=== PATIENT | female | born 1990 ===

== ENCOUNTER → 2017-07-11 | Outpatient (CLI) | payer OTHER ==
--- NOTE | 2017-07-12 07:47 | MAMMOGRAPHY REPORT ---
ULTRASOUND OF BOTH BREASTS: 07/11/2017 CLINICAL HISTORY: The patient reports thickening and associated intermittent tenderness in the right upper outer quadrant for approximately 6 months. She reports a history of PCOS and was told by her p ellenviluisito she will be getting a screening bilateral ultrasound. COMPARISON: No prior exams were available for comparison. TECHNIQUE: Real-time ultrasound of both breasts was performed. FINDINGS: Real-time, high-resolution ultrasound was performed of bilateral breasts including all 4 q uadrants and subareolar regions. Ultrasound was performed of the area of thickening and intermittent pain pointed out by the patient in the right upper outer quadrant. Sonographically normal tissue is seen in the area of intermittent pain and thickening pointed out by the patient. The remainder of b oth breasts also demonstrate no suspicious masses or other suspicious sonographic abnormalities. In the right 7:00 subareolar breast, there is a circumscribed oval anechoic 3 x 2 mm mass, consistent wi th a benign simple cyst. 2 adjacent anechoic circumscribed masses are also seen in the right 3:00 pe riareolar breast, one measuring 2 x 3 mm and the other measuring 2 mm; the masses are benign and comp atible with small cysts. IMPRESSION: ACR BI-RADS CATEGORY 2: BENIGN No suspicious sonographic abnormality at the site of thickening and intermittent pain in the right up per outer quadrant. There is no sonographic evidence of malignancy in either breast. Recommend clin ical follow-up for right breast thickening and pain. The patient was verbally notified of the results. Mariam Goodrich M.D. ah/:07/11/2017 10:21:02 Assistant Restaurant General Manager: Mariam Goodrich MD, [facility] letter sent: Normal 1/2 BI-RADS Code: ACR BI-RADS Category 2: Benign
== END | disposition home or self-care (01) ==
LOC: C.MAMM 09:36
PROVIDERS: ATTEND Internal Medicine
DX: N64.4 Mastodynia (principal)